=== PATIENT | male | born 1985 | race Caucasian/White ===

== ENCOUNTER 2021-06-16 05:25 | Day surgery (SDC) | payer BC ==
[2021-06-12 12:49] VITALS: BMI 28.0
[2021-06-16] MEDS ORDERED: DEXMEDETOMIDINE HCL 200 MCG/2 ML IVPB ONE (07:06)
[2021-06-16] MEDS ORDERED: ACETAMINOPHEN INJECTION 200 ML IVPB ONE (07:07)
[2021-06-16] MEDS ORDERED: LIDOCAINE HCL 2% JELLY (5 ML/TUBE) ONE (07:21)
[2021-06-16] MEDS ORDERED: LIDOCAINE HCL/PF 2% SDV 5ML VIAL ONE ×2 (07:21→08:44)
[2021-06-16] MEDS ORDERED: KETOROLAC TROMETHAMINE 30 MG/1 ML VIAL ONE ×2 (07:21→08:44)
[2021-06-16] MEDS ORDERED: ceFAZolin SODIUM 1 GM VIAL ONE ×2 (07:21→08:44)
[2021-06-16] MEDS ORDERED: SUCCINYLCHOLINE CHLORIDE 200 MG/10 ML SYRINGE ONE ×2 (07:26→08:38)
[2021-06-16] MEDS ORDERED: COCAINE HCL 4% TOPICAL SOLUTION 4 ML BOTTLE TP ONE ×2 (07:26→08:28)
[2021-06-16] MEDS ORDERED: MIDAZOLAM HCL 2 MG/2 ML SINGLE DOSE VIAL ONE (07:27)
[2021-06-16] MEDS ORDERED: PROPOFOL 20 ML ONE ×2 (07:27)
[2021-06-16] MEDS ORDERED: KETAMINE HCL 200 MG/20 ML VIAL ONE (07:27)
[2021-06-16] MEDS ORDERED: fentaNYL CITRATE 250 MCG/5 ML VIAL ONE (07:27)
[2021-06-16] MEDS ORDERED: ceFAZolin SODIUM 1 GM VIAL IVPB ONE (08:20)
[2021-06-16] MEDS ORDERED: LIDOCAINE HCL 0.5% EPINEPHRINE 1:200,000 50 ML VIAL IJ ONE (08:28)
[2021-06-16] MEDS ORDERED: BACITRACIN 15 GM TUBE TOPICAL OINTMENT TP ONE (09:45)
[2021-06-16 11:58] VITALS: TEMP 97.8
[2021-06-16 12:40] VITALS: BP 128/73; PULSE 76
== END 2021-06-16 12:40 | disposition home or self-care (01) ==
LOC: JASU-SURG 05:25 → EDSTATUS 15:23
PROVIDERS: ATTEND Otolaryngology
PROC: 09QQ4ZZ Repair Right Maxillary Sinus, Percutaneous Endoscopic Approach (ICD-10-PCS; 2021-06-16)
PROC: 09BM8ZZ Excision of Nasal Septum, Via Natural or Artificial Opening Endoscopic (ICD-10-PCS; 2021-06-16)
PROC: 09SL8ZZ Reposition Nasal Turbinate, Via Natural or Artificial Opening Endoscopic (ICD-10-PCS; 2021-06-16)
PROC: 099R8ZZ Drainage of Left Maxillary Sinus, Via Natural or Artificial Opening Endoscopic (ICD-10-PCS; 2021-06-16)
PROC: 099Q8ZZ Drainage of Right Maxillary Sinus, Via Natural or Artificial Opening Endoscopic (ICD-10-PCS; 2021-06-16)
PROC: 09QR4ZZ Repair Left Maxillary Sinus, Percutaneous Endoscopic Approach (ICD-10-PCS; principal; 2021-06-16 08:00)
DX: J34.2 Deviated nasal septum (principal); J34.3 Hypertrophy of nasal turbinates; J32.8 Other chronic sinusitis
CPT/HCPCS: 94760; J0131

== ENCOUNTER 2021-09-10 11:12 | Inpatient (IN) | payer BC ==
[2021-09-10] MEDS ORDERED: ONDANSETRON 4 MG/2 ML VIAL IVPUSH ONE (12:07)
[2021-09-10] MEDS ORDERED: SODIUM CHLORIDE 1,000 ML IV STA (12:07)
[2021-09-10] MEDS ORDERED: morphine CARPU-JECT 4 MG/1 ML DISP.SYRIN IVPUSH ONE ×2 (12:07→17:55)
[2021-09-10] MEDS ORDERED: ACETAMINOPHEN 1000 MG/100 ML BAG IVPB ONE ×2 (12:07→19:24)
[2021-09-10] MEDS ORDERED: ACETAMINOPHEN INJECTION 100 ML IVPB ONE ×2 (12:38→19:43)
[2021-09-10] MEDS ORDERED: ONDANSETRON 4 MG/2 ML VIAL ONE (12:38)
[2021-09-10] MEDS ORDERED: morphine SULFATE 4 MG/ML VIAL ONE ×2 (12:38→17:59)
[2021-09-10 12:39] LABS: URINE APPEARANCE CLOUDY; URINE BILIRUBIN NEGATIVE (NEGATIVE); URINE COLOR YELLOW; URINE GLUCOSE (UA) NEGATIVE (NEGATIVE); URINE KETONE NEGATIVE (NEGATIVE); URINE LEUK ESTERASE NEGATIVE (NEGATIVE); URINE NITRITE NEGATIVE (NEGATIVE); URINE PROTEIN TRACE (NEGATIVE); URINE UROBILINOGEN 0.2 mg/dL (0.2-1.0)
[2021-09-10 12:53] LABS: HEMOGLOBIN 13.5 GM/dL (11.7-16.9); MCH 28.3 pg (25.7-33.7); MCHC 33.7 g/dl (32.0-35.9); MEAN PLT VOLUME 8.8 fl (7.5-11.1); PLATELET COUNT 232 10^3/uL (134-434); RBC 4.76 M/mm3 (4.00-5.60); RDW 13.3 % (11.9-15.9); WHITE BLOOD COUNT 8.1 K/mm3 (4.0-10.0)
[2021-09-10 13:02] LABS: INR 1.11 (0.83-1.09); PROTHROMBIN TIME (PATIENT) 12.8 SEC (9.7-13.0)
[2021-09-10 13:18] LABS: ALBUMIN 3.9 g/dl (3.4-5.0); CALCIUM 9.1 mg/dL (8.5-10.1)
[2021-09-10 13:19] LABS: BLOOD UREA NITROGEN 12.5 mg/dL (7-18)
[2021-09-10 13:22] LABS: CREATININE 0.8 mg/dL (0.55-1.3)
[2021-09-10 13:23] LABS: TOT PROT 7.3 g/dl (6.4-8.2)
[2021-09-10 13:24] LABS: BILIRUBIN,TOTAL 0.6 mg/dL (0.2-1)
[2021-09-10 15:02] LABS: ANISOCYTOSIS 3+; MACROCYTOSIS 2+
[2021-09-10 15:03] LABS: PLATELET ESTIMATE ADEQUATE
[2021-09-10 18:14] LABS: LDH 286 U/L (87-246)
[2021-09-10] MEDS: SODIUM CHLORIDE 1,000 ML IV SCH (19:58)
[2021-09-10] MEDS: morphine SULFATE 4 MG/ML VIAL IVPUSH PRN (22:04)
[2021-09-11] MEDS ORDERED: morphine SULFATE 4 MG/ML VIAL ONE ×3 (01:22→11:21)
[2021-09-11] MEDS ORDERED: ACETAMINOPHEN INJECTION 100 ML IVPB ONE ×3 (03:42→14:13)
[2021-09-11] MEDS ORDERED: BACITRACIN 0.9 GM PACKET ONE (03:43)
[2021-09-11] MEDS: ACETAMINOPHEN 1000 MG/100 ML BAG IVPB PRN ×3 (03:55→21:41)
[2021-09-11] MEDS: morphine SULFATE 4 MG/ML VIAL IVPUSH PRN ×4 (07:56→21:15)
[2021-09-11 08:05] LABS: BASO % 0.1 % (0-2.0); HEMATOCRIT 37.5 % (35.4-49); HEMOGLOBIN 12.7 GM/dL (11.7-16.9); MCH 28.2 pg (25.7-33.7); MCHC 33.9 g/dl (32.0-35.9); MEAN CELL VOLUME 83.2 fl (80-96); MEAN PLT VOLUME 8.8 fl (7.5-11.1); MONO % 10.1 % (3.8-10.2); NEUT % 85.8 % (42.8-82.8); PLATELET COUNT 189 10^3/uL (134-434); RBC 4.51 M/mm3 (4.00-5.60); RDW 13.3 % (11.9-15.9); WHITE BLOOD COUNT 12.9 K/mm3 (4.0-10.0)
[2021-09-11 08:39] LABS: ALBUMIN 3.5 g/dl (3.4-5.0); CALCIUM 8.2 mg/dL (8.5-10.1)
[2021-09-11 08:40] LABS: BLOOD UREA NITROGEN 8.1 mg/dL (7-18)
[2021-09-11 08:42] LABS: CREATININE 0.9 mg/dL (0.55-1.3)
[2021-09-11 08:44] LABS: BILIRUBIN,TOTAL 0.7 mg/dL (0.2-1); TOT PROT 6.5 g/dl (6.4-8.2)
[2021-09-11] MEDS ORDERED: ENOXAPARIN NA (PORCINE) 40 MG/0.4 ML DISP.SYRIN SQ ONE (10:29)
[2021-09-11] MEDS: ENOXAPARIN NA (PORCINE) 40 MG/0.4 ML DISP.SYRIN SQ SCH (10:33)
[2021-09-11 13:08] LABS: SARS-CoV-2 NAA Not Detected (Not Detected)
[2021-09-11 15:14] VITALS: BMI 26.6
[2021-09-11] MEDS: SODIUM CHLORIDE 1,000 ML IV SCH (15:41)
[2021-09-12] MEDS: SODIUM CHLORIDE 1,000 ML IV SCH (01:44)
[2021-09-12] MEDS: morphine SULFATE 4 MG/ML VIAL IVPUSH PRN ×2 (01:56→10:47)
[2021-09-12] MEDS: ACETAMINOPHEN 1000 MG/100 ML BAG IVPB PRN (06:23)
[2021-09-12 08:04] VITALS: BP 115/88; PULSE 82; TEMP 99
[2021-09-12 08:34] LABS: URIC ACID 2.2 mg/dL (2.6-7.2)
[2021-09-12 09:16] LABS: HIV INTERPRETATION NEGATIVE (NEGATIVE)
[2021-09-12 10:17] LABS: ALBUMIN 3.3 g/dl (3.4-5.0); CALCIUM 8.2 mg/dL (8.5-10.1)
[2021-09-12 10:18] LABS: BLOOD UREA NITROGEN 8.3 mg/dL (7-18)
[2021-09-12 10:20] LABS: BASO % 0.2 % (0-2.0); EOS % 0.1 % (0-4.5); HEMATOCRIT 36.7 % (35.4-49); HEMOGLOBIN 12.6 GM/dL (11.7-16.9); LYMPH % 3.5 % (8-40); MCH 28.9 pg (25.7-33.7); MCHC 34.4 g/dl (32.0-35.9); MEAN CELL VOLUME 84.1 fl (80-96); MEAN PLT VOLUME 9.2 fl (7.5-11.1); MONO % 11.1 % (3.8-10.2); NEUT % 85.1 % (42.8-82.8); PLATELET COUNT 171 10^3/uL (134-434); RBC 4.36 M/mm3 (4.00-5.60); RDW 13.5 % (11.9-15.9); WHITE BLOOD COUNT 12.2 K/mm3 (4.0-10.0)
[2021-09-12 10:21] LABS: CREATININE 0.8 mg/dL (0.55-1.3)
[2021-09-12 10:22] LABS: BILIRUBIN,TOTAL 0.7 mg/dL (0.2-1); TOT PROT 6.6 g/dl (6.4-8.2)
[2021-09-12] MEDS: ENOXAPARIN NA (PORCINE) 40 MG/0.4 ML DISP.SYRIN SQ SCH (10:47)
[2021-09-15 17:09] LABS: FREE KAPPA,SERUM 15.1 mg/L (3.3-19.4)
== END 2021-09-12 15:00 | disposition short-term general hospital (02) | DRG 392 ==
LOC: JER 11:12 → JERBED 19:24 → J7W 09-11 14:31
PROVIDERS: ADMIT Hospitalist; ATTEND Family Medicine
DX: R19.00 Intra-abdominal and pelvic swelling, mass and lump, unspecified site (principal); R10.9 Unspecified abdominal pain; N50.811 Right testicular pain; N50.89 Other specified disorders of the male genital organs
CPT/HCPCS: 36415; 71046-TC-FY; 74176-TC; 76870-TC; 80053; 81003; 82105; 82784; 83615; 83883; 84155; 84165; 84550; 84702; 85025; 85610; 86334; 87040; 87086; 87389; 87491; 87591; 93005; 93010; 93970-TC; 99285-25; C9803; U0003; U0005